=== PATIENT | female | born 1945 | race African-American/Black ===

== ENCOUNTER 2023-05-01 17:24 | Inpatient (IN) | payer OTHER, BC ==
[~2023-05-01] VITALS: Ht 170.2 cm; Wt 65.9 kg
[2023-05-01 17:33] VITALS: BP 112/72; PULSE 84; RESP 20; TEMP 98.7; O2SAT 98
[2023-05-01 19:01] LABS: BASOPHILS % (AUTO) 0.5 % (0.0-2.0); EOSINOPHILS % (AUTO) 0.5 % (0.0-4.0); HEMATOCRIT 31.2 % (36-48); HEMOGLOBIN 10.2 g/dL (12.0-16.0); LYMPHOCYTES # (AUTO) 0.8 K/uL (2.5-16.5); LYMPHOCYTES % (AUTO) 27.2 % (20.5-51.1); MEAN CORPUSCULAR HEMOGLOBIN 26 pg (27-31); MEAN CORPUSCULAR HGB CONC 33 g/dL (33-37); MEAN CORPUSCULAR VOLUME 80.2 fL (80-94); MONOCYTES # (AUTO) 0.3 K/uL (0.8-1.0); NEUTROPHILS # (AUTO) 1.9 K/uL (1.8-7.7); NEUTROPHILS % (AUTO) 61.8 % (42.2-75.2); PLATELET COUNT (AUTO) 165 K/uL (140-450); RED BLOOD CELL COUNT(AUTO) 3.89 MIL/uL (4.20-5.40); RED CELL DISTRIBUTION WIDTH 16.3 % (11.6-13.7)
[2023-05-01 19:27] LABS: ALANINE AMINOTRANSFERASE 29 U/L (12-78); ALBUMIN 1.3 g/dL (3.4-5.0); ALKALINE PHOSPHATASE 249 U/L (50-136); ASPARTATE AMINOTRANSFERASE 35 U/L (15-37); CALCIUM 7.3 mg/dL (8.5-10.1); CARBON DIOXIDE 27.2 mmol/L (21-32); CHLORIDE 105 mmol/L (98-107); CREATININE 1.4 mg/dL (0.6-1.3); GLUCOSE 107 mg/dL (74-106); POTASSIUM 3.2 mmol/L (3.5-5.1); SODIUM SERUM 141 mmol/L (136-145); TOTAL BILIRUBIN 0.9 mg/dL (0.0-1.0); TOTAL PROTEIN, SERUM 6.4 g/dL (6.4-8.2); UREA NITROGEN, BLOOD 18 mg/dL (7-18)
[2023-05-01] MEDS ORDERED: MORPHINE SULFATE 4 MG/ML SYR IVP ONE (22:05)
[2023-05-01] MEDS ORDERED: SPIR25TA20 PO (22:34)
[2023-05-01] MEDS ORDERED: PANT40EC56 PO (22:34)
[2023-05-01] MEDS ORDERED: MIRT-33 PO (22:34)
[2023-05-01] MEDS ORDERED: MIDO5TAB16 PO (22:34)
[2023-05-01] MEDS ORDERED: FURO-570 PO (22:34)
[2023-05-01] MEDS ORDERED: [UNRECOGNIZED DRUG - CODE] PO (22:34)
[2023-05-01] MEDS ORDERED: LACT-103 PO (22:34)
[2023-05-01] MEDS ORDERED: LORA-476 PO (22:34)
[2023-05-02] VITALS (12 sets, daily range): BP systolic 80–114; BP diastolic 59–72; PULSE 75–123; RESP 12–24; TEMP 97–98.2; O2SAT 96–100
[2023-05-02] MEDS ORDERED: LORazepam 2 MG/ML VIAL IVP ONE (02:35)
[2023-05-02] MEDS ORDERED: MORPHINE SULFATE 2 MG/ML SYR IVP PRN (03:15)
[2023-05-02] MEDS ORDERED: ACETAMINOPHEN 325 MG TAB PO PRN (03:15)
[2023-05-02] MEDS ORDERED: ONDANSETRON 4 MG/2 ML VIAL IVP PRN (03:15)
[2023-05-02] MEDS ORDERED: LACTULOSE 20 GM/30 ML UDC PO ONE (04:20)
[2023-05-02 07:30] LABS: BASOPHILS % (AUTO) 0.5 % (0.0-2.0); EOSINOPHILS % (AUTO) 0.7 % (0.0-4.0); HEMOGLOBIN 9.2 g/dL (12.0-16.0); LYMPHOCYTES # (AUTO) 1.2 K/uL (2.5-16.5); LYMPHOCYTES % (AUTO) 37.9 % (20.5-51.1); MEAN CORPUSCULAR HEMOGLOBIN 27 pg (27-31); MEAN CORPUSCULAR HGB CONC 33 g/dL (33-37); MEAN CORPUSCULAR VOLUME 80.3 fL (80-94); MONOCYTES # (AUTO) 0.4 K/uL (0.8-1.0); MONOCYTES % (AUTO) 11.2 % (1.7-9.3); NEUTROPHILS # (AUTO) 1.6 K/uL (1.8-7.7); NEUTROPHILS % (AUTO) 49.7 % (42.2-75.2); PLATELET COUNT (AUTO) 138 K/uL (140-450); RED BLOOD CELL COUNT(AUTO) 3.49 MIL/uL (4.20-5.40); RED CELL DISTRIBUTION WIDTH 16.4 % (11.6-13.7); WHITE BLOOD COUNT (AUTO) 3.3 K/uL (4.8-10.8)
[2023-05-02 08:09] LABS: ALANINE AMINOTRANSFERASE 27 U/L (12-78); ALBUMIN 1.1 g/dL (3.4-5.0); ALKALINE PHOSPHATASE 215 U/L (50-136); ANION GAP 10.3 (8-16); ASPARTATE AMINOTRANSFERASE 34 U/L (15-37); CARBON DIOXIDE 27.1 mmol/L (21-32); CHLORIDE 108 mmol/L (98-107); CREATININE 1.4 mg/dL (0.6-1.3); GLUCOSE 98 mg/dL (74-106); MAGNESIUM 1.1 mg/dL (1.8-2.4); PHOSPHORUS 2.9 mg/dL (2.5-4.9); POTASSIUM 3.4 mmol/L (3.5-5.1); SODIUM SERUM 142 mmol/L (136-145); TOTAL BILIRUBIN 0.6 mg/dL (0.0-1.0); TOTAL PROTEIN, SERUM 5.7 g/dL (6.4-8.2); UREA NITROGEN, BLOOD 19 mg/dL (7-18)
[2023-05-02] MEDS ORDERED: VANCOMYCIN PER PHARMACY MC PRN (08:35)
[2023-05-02] MEDS ORDERED: NOREPINEPHRINE 4 MG/4 ML VIAL IV ONE (08:58)
[2023-05-02] MEDS: NOREPINEPHRINE 4 MG in DEXTROSE 5% 250 ML IV PRN ×2 (09:13→15:11)
[2023-05-02] MEDS ORDERED: NACL 0.9% 500 ML IV SCH ×2 (09:14→09:35)
[2023-05-02] MEDS ORDERED: POTASSIUM CHLORIDE 40 MEQ, LIDOCAINE MPF 1% 25 MG in NACL 0.9% 250 ML IV SCH (11:00)
[2023-05-02] MEDS ORDERED: VASOPRESSIN 20 UNITS in NACL 0.9% 250 ML IV PRN (11:58)
[2023-05-02 12:16] LABS: INR 1.42 (0.8-1.2); PARTIAL THROMBOPLASTIN TIME 34.6 secs (22-35.6); PROTHROMBIN TIME 14.7 secs (10.8-13.4)
[2023-05-02] MEDS ORDERED: PIPERACILLIN/TAZOBACTAM 3.375 GM in DEXTROSE 5% 50 ML IV SCH (13:00)
[2023-05-02] MEDS: VANCOMYCIN 750 MG in DEXTROSE 5% 250 ML IV SCH (13:00)
[2023-05-02] MEDS: PIPERACILLIN/TAZOBACTAM 2.25 GM in DEXTROSE 5% 50 ML IV SCH ×3 (13:11→23:22)
[2023-05-02] MEDS ORDERED: FOAM DRESSING TP PRN (14:05)
[2023-05-02] MEDS ORDERED: ALGINATE ROPE MC PRN (14:05)
[2023-05-02] MEDS ORDERED: HYDRAGUARD CREAM TP PRN (14:05)
[2023-05-02 14:23] LABS: FREE T4 (FREE THYROXINE) 1.08 ng/dL (0.76-1.46); THYROID STIMULATING HORMONE 4.19 uIU/mL (0.34-3.74)
[2023-05-02] MEDS ORDERED: NOREPINEPHRINE 4 MG in DEXTROSE 5% 250 ML IV PRN ×2 (15:35→19:05)
[2023-05-03] VITALS (23 sets, daily range): BP systolic 95–135; BP diastolic 63–90; PULSE 86–142; RESP 13–31; TEMP 96.7–97.6; O2SAT 97–100
[2023-05-03] MEDS: PIPERACILLIN/TAZOBACTAM 2.25 GM in DEXTROSE 5% 50 ML IV SCH ×3 (06:26→17:25)
[2023-05-03] MEDS ORDERED: ALBUMIN HUMAN 25% 50 ML IV ONE (06:50)
[2023-05-03 07:21] LABS: ALANINE AMINOTRANSFERASE 35 U/L (12-78); ALBUMIN 1.2 g/dL (3.4-5.0); ALKALINE PHOSPHATASE 253 U/L (50-136); ANION GAP 13.8 (8-16); ASPARTATE AMINOTRANSFERASE 48 U/L (15-37); CALCIUM 7.2 mg/dL (8.5-10.1); CHLORIDE 105 mmol/L (98-107); CREATININE 1.2 mg/dL (0.6-1.3); GLUCOSE 121 mg/dL (74-106); MAGNESIUM 1.2 mg/dL (1.8-2.4); PHOSPHORUS 2.4 mg/dL (2.5-4.9); POTASSIUM 3.8 mmol/L (3.5-5.1); SODIUM SERUM 137 mmol/L (136-145); TOTAL BILIRUBIN 0.9 mg/dL (0.0-1.0); TOTAL PROTEIN, SERUM 6.5 g/dL (6.4-8.2); UREA NITROGEN, BLOOD 16 mg/dL (7-18)
[2023-05-03 07:22] LABS: BASOPHILS % (AUTO) 0.2 % (0.0-2.0); EOSINOPHILS % (AUTO) 0.2 % (0.0-4.0); HEMOGLOBIN 10.6 g/dL (12.0-16.0); LYMPHOCYTES # (AUTO) 1.4 K/uL (2.5-16.5); LYMPHOCYTES % (AUTO) 40.8 % (20.5-51.1); MEAN CORPUSCULAR HEMOGLOBIN 27 pg (27-31); MEAN CORPUSCULAR HGB CONC 33 g/dL (33-37); MEAN CORPUSCULAR VOLUME 80.4 fL (80-94); MONOCYTES # (AUTO) 0.2 K/uL (0.8-1.0); MONOCYTES % (AUTO) 6.7 % (1.7-9.3); NEUTROPHILS # (AUTO) 1.8 K/uL (1.8-7.7); NEUTROPHILS % (AUTO) 52.1 % (42.2-75.2); PLATELET COUNT (AUTO) 167 K/uL (140-450); RED BLOOD CELL COUNT(AUTO) 3.98 MIL/uL (4.20-5.40); RED CELL DISTRIBUTION WIDTH 16.7 % (11.6-13.7); WHITE BLOOD COUNT (AUTO) 3.4 K/uL (4.8-10.8)
[2023-05-03] MEDS: LACTATED RINGERS 1,000 ML IV SCH ×2 (07:45→20:58)
[2023-05-03] MEDS ORDERED: LORazepam 2 MG/ML VIAL IVP SCH (07:53)
[2023-05-03] MEDS ORDERED: SPIRONOLACTONE 25 MG TAB PO SCH (09:00)
[2023-05-03] MEDS ORDERED: FUROSEMIDE 40 MG/4 ML VIAL IVP SCH (09:00)
[2023-05-03] MEDS ORDERED: MAG SULF 2000 MG/WATER PREMIX 50 ML IV SCH (09:03)
[2023-05-03] MEDS: PANTOPRAZOLE 40 MG INJ VIAL IVP SCH (09:15)
[2023-05-03 09:59] LABS: LACTIC ACID 2.3 mmol/L (0.4-2.0)
[2023-05-03 10:31] LABS: BILIRUBIN,URINE NEGATIVE (NEGATIVE); BLOOD, URINE 3+ (NEGATIVE); COLOR,URINE YELLOW (YELLOW); LEUKOCYTE ESTERASE ,URINE TRACE (NEGATIVE); NITRITE, URINE NEGATIVE (NEGATIVE); PROTEIN,URINE 1+ (NEGATIVE); UGLUCOSE NEGATIVE (NEGATIVE)
[2023-05-03 10:40] LABS: APPEARANCE,URINE CLOUDY (CLEAR)
[2023-05-03 10:59] LABS: BACTERIA,URINE FEW /HPF (None Seen); CALCIUM OXALATE CRYSTALS,UR None Seen /HPF (None Seen); COARSE GRANULAR CASTS,URINE None Seen /LPF (None Seen); CYSTINE CRYSTALS,URINE None Seen /HPF (None Seen); FATTY CASTS,URINE None Seen /LPF (None Seen); FINE GRANULAR CASTS,URINE None Seen /LPF (None Seen); HYALINE CASTS, URINE None Seen /LPF (None Seen); MUCUS,URINE None Seen /LPF (None Seen); OTHER CASTS, URINE None Seen /LPF (None Seen); OTHER CRYSTALS,URINE None Seen /HPF (None Seen); RBC,URINE 80-100 /HPF (0-5); RED BLOOD CELL CASTS,URINE None Seen /LPF (None Seen); SQUAMOUS EPITHELIAL CELL,UR 0-3 (FEW) /LPF (0-3 (FEW)); TRICHOMONAS,URINE None Seen /HPF (None Seen); TRIPLE PHOSPHATE CRYSTAL,UR None Seen /HPF (None Seen); URIC ACID CRYSTALS,URINE None Seen /HPF (None Seen); URINE AMORPHOUS PHOSPHATES None Seen /HPF (None Seen); URINE AMORPHOUS URATE None Seen /HPF (None Seen); WAXY CASTS,URINE None Seen /LPF (None Seen); WHITE BLOOD CELL CASTS,URINE None Seen /LPF (None Seen); YEAST,URINE None Seen /HPF (None Seen)
[2023-05-03] MEDS: VANCOMYCIN 750 MG in DEXTROSE 5% 250 ML IV SCH (11:09)
[2023-05-03] MEDS: MIDODRINE 5 MG TAB PO SCH ×2 (12:56→18:12)
[2023-05-03] MEDS: FOAM DRESSING TP SCH (13:00)
[2023-05-03] MEDS: HYDRAGUARD CREAM TP SCH (13:00)
[2023-05-03] MEDS: ALGINATE ROPE MC SCH (13:00)
[2023-05-04] VITALS (8 sets, daily range): BP systolic 96–118; BP diastolic 57–88; PULSE 108–122; RESP 15–22; TEMP 97–98.1; O2SAT 96–100
[2023-05-04] MEDS: PIPERACILLIN/TAZOBACTAM 2.25 GM in DEXTROSE 5% 50 ML IV SCH ×5 (00:56→23:49)
[2023-05-04] MEDS: MIDODRINE 5 MG TAB PO SCH ×3 (07:56→18:02)
[2023-05-04] MEDS: PANTOPRAZOLE 40 MG INJ VIAL IVP SCH (08:28)
[2023-05-04 09:40] LABS: ANION GAP 8.7 (8-16); CALCIUM 7.3 mg/dL (8.5-10.1); CARBON DIOXIDE 26.6 mmol/L (21-32); CHLORIDE 108 mmol/L (98-107); GLUCOSE 85 mg/dL (74-106); POTASSIUM 3.3 mmol/L (3.5-5.1); SODIUM SERUM 140 mmol/L (136-145); UREA NITROGEN, BLOOD 12 mg/dL (7-18)
[2023-05-04 09:57] LABS: ALANINE AMINOTRANSFERASE 28 U/L (12-78); ALBUMIN 1.3 g/dL (3.4-5.0); ALKALINE PHOSPHATASE 199 U/L (50-136); ANION GAP 10.2 (8-16); ASPARTATE AMINOTRANSFERASE 24 U/L (15-37); CALCIUM 7.2 mg/dL (8.5-10.1); CHLORIDE 108 mmol/L (98-107); GLUCOSE 84 mg/dL (74-106); POTASSIUM 3.2 mmol/L (3.5-5.1); SODIUM SERUM 140 mmol/L (136-145); TOTAL PROTEIN, SERUM 5.8 g/dL (6.4-8.2); UREA NITROGEN, BLOOD 11 mg/dL (7-18)
[2023-05-04] MEDS: VANCOMYCIN 1,000 MG in DEXTROSE 5% 250 ML IV SCH (10:39)
[2023-05-04] MEDS: KCL 20 MEQ IN 100 mL PREMIX 200 ML IV SCH ×2 (11:05→13:25)
[2023-05-04] MEDS: LACTATED RINGERS 1,000 ML IV SCH (11:34)
[2023-05-04] MEDS: HYDRAGUARD CREAM TP SCH (13:01)
[2023-05-04] MEDS: FOAM DRESSING TP SCH (13:01)
[2023-05-04] MEDS: ALGINATE ROPE MC SCH (13:01)
[2023-05-04] MEDS: MIRTAZAPINE 15 MG TAB PO SCH (20:07)
[2023-05-05] VITALS (7 sets, daily range): BP systolic 102–134; BP diastolic 57–82; PULSE 93–123; RESP 12–22; TEMP 97–98.4; O2SAT 98–100
[2023-05-05] MEDS: LACTATED RINGERS 1,000 ML IV SCH ×2 (02:46→16:07)
[2023-05-05] MEDS: PIPERACILLIN/TAZOBACTAM 2.25 GM in DEXTROSE 5% 50 ML IV SCH ×3 (05:56→18:44)
[2023-05-05] MEDS: MIDODRINE 5 MG TAB PO SCH ×3 (06:07→18:44)
[2023-05-05 08:50] LABS: BASOPHILS % (AUTO) 0.6 % (0.0-2.0); EOSINOPHILS % (AUTO) 1.1 % (0.0-4.0); HEMATOCRIT 28.1 % (36-48); HEMOGLOBIN 9.2 g/dL (12.0-16.0); LYMPHOCYTES # (AUTO) 0.8 K/uL (2.5-16.5); LYMPHOCYTES % (AUTO) 35.1 % (20.5-51.1); MEAN CORPUSCULAR HEMOGLOBIN 26 pg (27-31); MEAN CORPUSCULAR HGB CONC 33 g/dL (33-37); MEAN CORPUSCULAR VOLUME 80.8 fL (80-94); MONOCYTES # (AUTO) 0.2 K/uL (0.8-1.0); MONOCYTES % (AUTO) 7.8 % (1.7-9.3); NEUTROPHILS # (AUTO) 1.2 K/uL (1.8-7.7); NEUTROPHILS % (AUTO) 55.4 % (42.2-75.2); PLATELET COUNT (AUTO) 96 K/uL (140-450); RED BLOOD CELL COUNT(AUTO) 3.48 MIL/uL (4.20-5.40); RED CELL DISTRIBUTION WIDTH 16.7 % (11.6-13.7); WHITE BLOOD COUNT (AUTO) 2.2 K/uL (4.8-10.8)
[2023-05-05] MEDS: PANTOPRAZOLE 40 MG INJ VIAL IVP SCH (10:00)
[2023-05-05] MEDS: VANCOMYCIN 1,000 MG in DEXTROSE 5% 250 ML IV SCH (10:00)
[2023-05-05] MEDS: MUPIROCIN CA NASAL 2% 1GM TUBE NS SCH (12:56)
[2023-05-05] MEDS: ALGINATE ROPE MC SCH (12:59)
[2023-05-05] MEDS: HYDRAGUARD CREAM TP SCH (13:01)
[2023-05-05] MEDS: FOAM DRESSING TP SCH (13:01)
[2023-05-05] MEDS: CHLORHEXADINE GLUC 2% CLOTH TP SCH (13:01)
[2023-05-05] MEDS ORDERED: POTASSIUM CHLORIDE 40 MEQ, LIDOCAINE 1% 25 MG in NACL 0.9% 250 ML IV SCH (15:30)
[2023-05-05 15:33] LABS: ANION GAP 6.3 (8-16); CALCIUM 7.3 mg/dL (8.5-10.1); CARBON DIOXIDE 28.3 mmol/L (21-32); CHLORIDE 109 mmol/L (98-107); GLUCOSE 78 mg/dL (74-106); POTASSIUM 3.6 mmol/L (3.5-5.1); SODIUM SERUM 140 mmol/L (136-145); UREA NITROGEN, BLOOD 9 mg/dL (7-18)
[2023-05-05] MEDS: MIRTAZAPINE 15 MG TAB PO SCH (20:16)
[2023-05-05 20:29] LABS: GLUCOSE,BODY FLUID 96 mg/dL
[2023-05-05 20:33] LABS: APPEARANCE,SPUN,BODY FLUID CLEAR (CLEAR); APPEARANCE,UNSPUN,BODY FLUID CLEAR (CLEAR); COLOR,BODY FLUID LT YELLOW (LT YELLOW); RBC, BODY FLUID 0 /cu. mm.; SPECIMENTYPE,BODY FLUID ASCITES; TOTAL VOLUME,BODY FLUID 5250 mL; WBC, BODY FLUID 0 /cu. mm.
[2023-05-06] VITALS (7 sets, daily range): BP systolic 106–129; BP diastolic 66–78; PULSE 71–117; RESP 15–20; TEMP 96.6–98.8; O2SAT 94–100
[2023-05-06] MEDS: PIPERACILLIN/TAZOBACTAM 2.25 GM in DEXTROSE 5% 50 ML IV SCH ×5 (06:00→23:07)
[2023-05-06] MEDS: MIDODRINE 5 MG TAB PO SCH ×3 (07:00→18:05)
[2023-05-06 09:12] LABS: BASOPHILS % (AUTO) 0.4 % (0.0-2.0); EOSINOPHILS % (AUTO) 1.4 % (0.0-4.0); HEMATOCRIT 29.1 % (36-48); HEMOGLOBIN 9.4 g/dL (12.0-16.0); LYMPHOCYTES # (AUTO) 0.9 K/uL (2.5-16.5); LYMPHOCYTES % (AUTO) 35.8 % (20.5-51.1); MEAN CORPUSCULAR HEMOGLOBIN 26 pg (27-31); MEAN CORPUSCULAR HGB CONC 32 g/dL (33-37); MEAN CORPUSCULAR VOLUME 81.1 fL (80-94); MONOCYTES # (AUTO) 0.1 K/uL (0.8-1.0); MONOCYTES % (AUTO) 4.8 % (1.7-9.3); NEUTROPHILS # (AUTO) 1.5 K/uL (1.8-7.7); NEUTROPHILS % (AUTO) 57.6 % (42.2-75.2); PLATELET COUNT (AUTO) 113 K/uL (140-450); RED BLOOD CELL COUNT(AUTO) 3.59 MIL/uL (4.20-5.40); RED CELL DISTRIBUTION WIDTH 17.3 % (11.6-13.7); WHITE BLOOD COUNT (AUTO) 2.6 K/uL (4.8-10.8)
[2023-05-06 09:18] LABS: ANION GAP 12.4 (8-16); CALCIUM 7.4 mg/dL (8.5-10.1); CARBON DIOXIDE 25.5 mmol/L (21-32); CHLORIDE 107 mmol/L (98-107); CREATININE 1.1 mg/dL (0.6-1.3); GLUCOSE 75 mg/dL (74-106); POTASSIUM 3.9 mmol/L (3.5-5.1); SODIUM SERUM 141 mmol/L (136-145); UREA NITROGEN, BLOOD 8 mg/dL (7-18)
[2023-05-06] MEDS: PANTOPRAZOLE 40 MG INJ VIAL IVP SCH (09:58)
[2023-05-06] MEDS: CHLORHEXADINE GLUC 2% CLOTH TP SCH (13:00)
[2023-05-06] MEDS: ALGINATE ROPE MC SCH (13:00)
[2023-05-06] MEDS: HYDRAGUARD CREAM TP SCH (13:00)
[2023-05-06] MEDS: FOAM DRESSING TP SCH (13:00)
[2023-05-06] MEDS: LACTATED RINGERS 1,000 ML IV SCH (16:02)
[2023-05-06] MEDS: MUPIROCIN CA NASAL 2% 1GM TUBE NS SCH (17:49)
[2023-05-06] MEDS: MIRTAZAPINE 15 MG TAB PO SCH (20:24)
[2023-05-07] VITALS (7 sets, daily range): BP systolic 112–127; BP diastolic 63–71; PULSE 69–93; RESP 18; TEMP 96.8–98.6; O2SAT 97–100
[2023-05-07] MEDS: PIPERACILLIN/TAZOBACTAM 2.25 GM in DEXTROSE 5% 50 ML IV SCH ×2 (05:06→12:09)
[2023-05-07] MEDS: MIDODRINE 5 MG TAB PO SCH ×2 (06:02→12:10)
[2023-05-07 06:19] LABS: BASOPHILS % (AUTO) 0.5 % (0.0-2.0); EOSINOPHILS # (AUTO) 0.1 K/uL (0-0.4); EOSINOPHILS % (AUTO) 2.9 % (0.0-4.0); HEMATOCRIT 24.3 % (36-48); HEMOGLOBIN 8.1 g/dL (12.0-16.0); LYMPHOCYTES # (AUTO) 0.8 K/uL (2.5-16.5); LYMPHOCYTES % (AUTO) 37.2 % (20.5-51.1); MEAN CORPUSCULAR HEMOGLOBIN 27 pg (27-31); MEAN CORPUSCULAR HGB CONC 33 g/dL (33-37); MEAN CORPUSCULAR VOLUME 80.8 fL (80-94); MONOCYTES # (AUTO) 0.2 K/uL (0.8-1.0); MONOCYTES % (AUTO) 7.4 % (1.7-9.3); NEUTROPHILS # (AUTO) 1.1 K/uL (1.8-7.7); PLATELET COUNT (AUTO) 91 K/uL (140-450); RED BLOOD CELL COUNT(AUTO) 3.01 MIL/uL (4.20-5.40); RED CELL DISTRIBUTION WIDTH 17.4 % (11.6-13.7); WHITE BLOOD COUNT (AUTO) 2.2 K/uL (4.8-10.8)
[2023-05-07 07:10] LABS: CALCIUM 7.5 mg/dL (8.5-10.1); CARBON DIOXIDE 21.2 mmol/L (21-32); CHLORIDE 107 mmol/L (98-107); CREATININE 0.9 mg/dL (0.6-1.3); GLUCOSE 78 mg/dL (74-106); POTASSIUM 3.2 mmol/L (3.5-5.1); SODIUM SERUM 137 mmol/L (136-145); UREA NITROGEN, BLOOD 8 mg/dL (7-18)
[2023-05-07] MEDS: LACTATED RINGERS 1,000 ML IV SCH (08:30)
[2023-05-07] MEDS: PANTOPRAZOLE 40 MG INJ VIAL IVP SCH (08:31)
[2023-05-07] MEDS ORDERED: POTASSIUM CHLORIDE 10 MEQ TABER PO SCH (09:44)
[2023-05-07] MEDS ORDERED: VANCOMYCIN 1,000 MG in DEXTROSE 5% 250 ML IV SCH (10:00)
[2023-05-07] MEDS ORDERED: AMOX-999 PO (10:16)
[2023-05-07] MEDS: MUPIROCIN CA NASAL 2% 1GM TUBE NS SCH (12:10)
[2023-05-07] MEDS: FOAM DRESSING TP SCH (12:10)
[2023-05-07] MEDS: HYDRAGUARD CREAM TP SCH (12:10)
[2023-05-07] MEDS: CHLORHEXADINE GLUC 2% CLOTH TP SCH (12:10)
[2023-05-07] MEDS: ALGINATE ROPE MC SCH (12:11)
[2023-05-08] MEDS ORDERED: POTASSIUM CHLORIDE 10 MEQ TABER PO SCH (09:00)
== END 2023-05-07 17:05 | disposition home or self-care (01) | DRG 871 ==
LOC: MED 17:24 → MTU 05-02 03:14 → MIC 05-02 10:14 → MTU 05-05 22:50
PROVIDERS: ADMIT Family Medicine; ATTEND Family Medicine
PROC: 0W9G3ZZ Drainage of Peritoneal Cavity, Percutaneous Approach (ICD-10-PCS; principal; 2023-05-05)
DX: A41.9 Sepsis, unspecified organism (principal); E43 Unspecified severe protein-calorie malnutrition; L89.154 Pressure ulcer of sacral region, stage 4; J18.9 Pneumonia, unspecified organism; R65.21 Severe sepsis with septic shock; N17.0 Acute kidney failure with tubular necrosis; K65.2 Spontaneous bacterial peritonitis; R18.8 Other ascites; K76.82 Hepatic encephalopathy; R00.0 Tachycardia, unspecified; E86.0 Dehydration; E86.1 Hypovolemia; D50.9 Iron deficiency anemia, unspecified; E87.6 Hypokalemia; Z68.22 Body mass index [BMI] 22.0-22.9, adult; K74.60 Unspecified cirrhosis of liver; K80.20 Calculus of gallbladder without cholecystitis without obstruction; K44.9 Diaphragmatic hernia without obstruction or gangrene
CPT/HCPCS: 36415; 49083; 70450; 71045; 71275; 73650; 76705; 80048; 80053; 80202; 81001; 82140; 82533; 82945; 83605; 83735; 83880; 84100; 84157; 84439; 84443; 84484; 85025; 85610; 85730; 87040; 87070; 87075; 87081; 87086; 87205; 88305; 89051; 93005; 93970; 96374; 96375; 97112; 97116; 97163-GP; 97530; 99285; C9113; J1644; J2001; J2060; J2270; J2543; J3370; J3475; J3480; J3490; J7030; J7060; P9046; Q0092; Q9967